=== PATIENT | male | born 1980 | race Caucasian/White ===

== ENCOUNTER → 2017-01-26 08:35 | Outpatient (CLI) | payer OTHER | END | disposition home or self-care (01) | LOC: D.CT 08:35 | DX: N28.1 Cyst of kidney, acquired (principal); Z68.32 Body mass index [BMI] 32.0-32.9, adult ==

== ENCOUNTER 2017-12-17 16:08 | Emergency (ER) | payer OTHER ==
[~2017-12-17] VITALS: Ht 180.3 cm; Wt 106.8 kg
[2017-12-17 16:17] VITALS: Ht 180.3 cm; Wt 106.8 kg
[2017-12-17] MEDS ORDERED: LIPITOR20 MG PO (16:20)
[2017-12-17] MEDS ORDERED: OMEPRAZOLE20 M1 PO (16:20)
[2017-12-17] MEDS ORDERED: LISINOPRIL10 MG PO (16:20)
[2017-12-17] MEDS ORDERED: CLEOCIN HCL300 MG PO (18:30)
[2017-12-17] MEDS ORDERED: TORADOL10 MG PO (18:32)
[2017-12-17 19:24] VITALS: BP 138/86
[2018-01-02] MEDS ORDERED: PRINZIDE 20/12.1 TA1 PO (14:56)
[2018-01-04 07:24] VITALS: Ht 180.3 cm; Wt 106.8 kg
== END 2017-12-17 19:25 | disposition home or self-care (01) ==
LOC: D.ER 16:08
DX: S61.412A Laceration without foreign body of left hand, initial encounter (principal); W26.8XXA Contact with other sharp object(s), not elsewhere classified, initial encounter; Y93.89 Activity, other specified; Y92.019 Unspecified place in single-family (private) house as the place of occurrence of the external cause

== ENCOUNTER 2018-01-04 06:40 | Day surgery (SDC) | payer OTHER ==
[2018-01-02 15:35] LABS: HEMATOCRIT 43.1 % (42.0-54.0); HEMOGLOBIN 15.2 g/dL (13.5-17.5); MCH 31.5 pg (26.0-34.0); MCHC 35.3 g/dL (31.0-37.0); MCV 89.4 fL (80.0-100.0); MEAN PLATELET VOLUME 9.2 fL (7.4-10.4); RBC 4.82 10x6/uL (4.20-6.10); WBC 6.6 10x3/uL (4.8-10.8)
[2018-01-02 15:45] LABS: CALC OSMOLALITY 282 mosm/kg (275-300); CALCIUM 9.4 mg/dL (8.5-10.1); CARBON DIOXIDE 30.8 mmol/L (21.0-32.0); CHLORIDE - SERUM 102 mmol/L (98-107); SODIUM 142 mmol/L (136-145); UREA NITROGEN 13 mg/dL (7-18); eGFR NON AFRICAN AMERICAN 89 mL/min (90-120)
[2018-01-02 15:46] LABS: GLUCOSE 101 mg/dL (74-106)
[~2018-01-04] VITALS: Ht 180.3 cm; Wt 108.0 kg
--- NOTE | ~2018-01-04 | OP ---
PATIENT NAME: ANNALISA LINARES MEDICAL RECORD: [id number] LOCATION:[facility] ADMISSION DATE: SURGEON: VIVIAN DIAZ MD DATE OF OPERATION: 01/04/2018 SURGEON: Vivian Diaz MD ANESTHESIA: General anesthesia by Dr. Johnnie Richey. DIAGNOSES: Right hemiscrotal genital warts, elective male sterilization. PROCEDURE: Excision of genital condylomata, vasectomy. FINDINGS: Multiple skin lesions on the right hemiscrotum, which may be genital warts. One lesion on the right medial thigh in direct approximation to the lesion on the right hemiscrotum. BLOOD LOSS: None. CLINICAL HISTORY: This is a 37-year-old male who wishes to have a vasectomy performed. He has 1 child. During the 's , she had significant medical complications and she was advised not to get again. Therefore, the patient wishes to have elective male sterilization. He is otherwise in good health. He was in the [employer] [place] for 9 years and then honorably discharged. 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 He is not allergic to any medications. He was given Ancef cotton weigher to the OR. DESCRIPTION OF PROCEDURE: The patient was given induction of general anesthesia in supine position. He was then shaved, prepped and draped. On examining the right hemiscrotal skin, I noticed multiple lesions on the scrotum, which may either be small skin tags or be genital warts. Since it is hard to distinguish between the two, I decided to excise them all. There are about 4 of them in total. The skin underneath the lesion was infiltrated with 0.25% Marcaine with epinephrine. An elliptical skin excision was made and the lesion was removed. There is one such lesion on the medial thigh, which is indirect approximation to a corresponding lesion on the right hemiscrotum. There is also a very tiny lesion on the left hemiscrotum, which was also excised. All these specimens were sent to pathology in formalin. We then palpated for the vas deferens. On the left side, we could identify the vas deferens. It was brought up to the skin incision where the possible condyloma had been excised previously. Towel clamps were used to hold the vas in place. The skin incision was then deepened to go through the dartos fascia. A right angle clamp was then used to bring the vas up. The tunics were stripped using the cautery. Once we had a nice length of vas deferens exposed, the proximal and distal ends were ligated using 2-0 polypropylene. The two ends were then cut and the intervening segment was sent to pathology in formalin. The cut ends of the vas were then cauterized. The vas was then placed back into its hemiscrotum and the incision was closed using simple interrupted 4-0 Vicryl. The same procedure was done on the right side. We then proceeded to close all the genital wart excision areas with simple interrupted 4-0 Vicryl also. At the end of the procedure, triple antibiotic ointment was placed on all the wound incision sites. Fluffs and mesh panties were placed. I will see the patient in followup in 1-2 weeks' time to check on wound healing and also to review the pathology results with him. TRANSINT:[id number] Voice Confirmation ID: [id number] DOCUMENT ID: [id number] OPERATIVE REPORT [id number] SHEETS,ANNALISA DIAZ, VIVIAN Allen MD at 1432 CC: [id number] DICTATION DATE: 01/04/18 1309 POT MAKER: 01/04/18 1405 [facility] [address] [place] [address]
[~2018-01-04 06:40] MED LIST: CLEOCIN HCL300 MG PO; LIPITOR20 MG PO; LISINOPRIL10 MG PO; OMEPRAZOLE20 M1 PO; PRINZIDE 20/12.1 TA1 PO; TORADOL10 MG PO
[2018-01-04 07:24] VITALS: BP 135/83; Ht 180.3 cm; Wt 108.0 kg
== END 2018-01-04 14:55 | disposition home or self-care (01) ==
LOC: D.OPS 06:40
PROVIDERS: Anesthesiology
DX: A63.0 Anogenital (venereal) warts (principal); D23.71 Other benign neoplasm of skin of right lower limb, including hip; Z30.2 Encounter for sterilization; Z01.812 Encounter for preprocedural laboratory examination